=== PATIENT | female | born 1970 | race Two or more races ===

== ENCOUNTER 2019-11-15 12:06 | Emergency (ER) | payer MEDICAID ==
[2019-11-15 13:02] LABS: BASOPHILS # (AUTO) 0.1 10^3/uL (0.0-0.1); BASOPHILS % (AUTO) 0.8 %; EOSINOPHILS # (AUTO) 0.1 10^3/uL (0.0-0.7); EOSINOPHILS % (AUTO) 2.1 %; HGB - HEMOGLOBIN 14.3 g/dL (12.0-16.0); LYMPHOCYTES # (AUTO) 2.4 10^3/uL (1.5-3.5); LYMPHOCYTES % (AUTO) 39.5 %; MEAN CORPUSCULAR HGB CONC 33.4 g/dL (32.0-36.0); MEAN CORPUSCULAR VOLUME 95.7 fL (81.0-99.0); MEAN PLATELET VOLUME 11.7 fL (7.9-10.8); MONOCYTES # (AUTO) 0.3 10^3/uL (0.0-1.0); MONOCYTES % (AUTO) 5.5 %; NEUTROPHILS # (AUTO) 3.2 10^3/uL (1.5-6.6); NEUTROPHILS % (AUTO) 51.9 %; PLT - PLATELET COUNT 161 10^3/uL (130-450); RED BLOOD COUNT 4.47 10^6/uL (4.20-5.40); RED CELL DISTRIBUTION WIDTH 12.5 % (12.0-15.0); WHITE BLOOD COUNT 6.2 x10^3/uL (4.8-10.8)
--- NOTE | 2019-11-15 13:02 | XRAY Report ---
Reason: Chest pain Procedure Date: 11/15/2019 Accession Number: [id number] / [id number] Procedure: XR - Chest 1 View X-Ray CPT Code: 59494 Final Report FULL RESULT: EXAM: CHEST RADIOGRAPHY EXAM DATE: 11/15/2019 12:45 PM. CLINICAL HISTORY: Chest pain. COMPARISON: None. TECHNIQUE: 1 view. FINDINGS: Lungs/Pleura: No focal opacities evident. No pleural effusion. No pneumothorax. Mediastinum: Within exam limitations, the cardiomediastinal contour is normal. Other: None. IMPRESSION: No consolidation is identified. RADIA
[2019-11-15 13:10] LABS: ALBUMIN 4.5 g/dL (3.2-5.5); ALBUMIN/GLOBULIN RATIO 1.4 (1.0-2.2); BILIRUBIN,TOTAL 0.5 mg/dL (0.2-1.0); CALCIUM 9.7 mg/dL (8.5-10.3); CREATININE 0.5 mg/dL (0.4-1.0); TOTAL PROTEIN 7.7 g/dL (6.7-8.2)
[2019-11-15] MEDS ORDERED: FAMOTIDINE 20 MG TABLET PO STA (16:39)
[2019-11-15] MEDS ORDERED: SUCRALFATE 1 GM/10 ML UDC PO STA (16:39)
[2019-11-15] MEDS ORDERED: MAG HYDROX/AL HYDROX/SIMETH 30 ML UDC PO STA (16:39)
[2019-11-15] MEDS ORDERED: LIDOCAINE VISCOUS 2% 15 ML UDC MM STA (16:39)
--- NOTE | 2019-11-15 16:49 | ED Physician Documentation ---
History of Present Illness - Stated complaint Stated Complaint: CP/BACK PX, DIZZINESS - Chief complaint Chief Complaint: Cardiac - History obtained from History obtained from: Patient, Family - History of Present Illness Timing: How many days ago (3) Pain level max: 3 Pain level now: 0 - Additonal information Additional information: 49-year-old female presents to the emergency department stating she has occasional Sharp right-sided chest pain over the past 2 to 3 days. States that is worse at night and with laying down. Nothing seems to make it better. Does not change with food. Has never had similar symptoms in the past. No vomiting. Currently is feeling better. No fevers. No diarrhea. No difficulty breathing. No sweating. No lightheadedness. No history of acute coronary syndrome. Review of Systems Constitutional: denies: Fever, Chills GI: denies: Vomiting, Diarrhea Skin: denies: Rash Musculoskeletal: denies: Neck pain, Back pain Neurologic: denies: Headache PD PAST MEDICAL HISTORY - Past Medical History Past Medical History: Yes Cardiovascular: None Respiratory: None Endocrine/Autoimmune: Type 2 diabetes GI: None : None HEENT: None Psych: None Musculoskeletal: None Derm: None - Past Surgical History Past Surgical History: Yes General: Cholecystectomy - Present Medications Home Medications: Ambulatory Orders Medication Instructions Recorded Confirmed metFORMIN [Glucophage] 1,000 mg PO BID 02/17/16 06/01/16 Glipizide 5 mg PO DAILY 05/07/16 06/01/16 Clindamycin HCl [Clindamycin 300MG 300 mg PO Q6HR #27 capsule 06/02/16 CAP] Hydrocodone/Acetaminophen [Vicodin 1 - 2 each PO Q6HR PRN #14 tablet 06/02/16 5-300 mg Tablet] Famotidine [Pepcid] 20 mg PO BID #60 tablet 11/15/19 - Allergies Allergies/Adverse Reactions: Allergies Allergy/AdvReac Type Severity Reaction Status Date / Time No Known Drug Allergies Allergy Verified 11/15/19 12:09 - Social History Does the pt smoke?: No Smoking Status: Never smoker Does the pt drink ETOH?: No Does the pt have substance abuse?: No - Immunizations Immunizations are current?: Yes - POLST Patient has POLST: No PD ED PE NORMAL - Vitals Vital signs reviewed: Yes - General General: Alert and oriented X 3, No acute distress, Other (obese) - HEENT HEENT: Moist mucous membranes - Neck Neck: Supple, no meningeal sign - Cardiac Cardiac: RRR - Respiratory Respiratory: No respiratory distress, Clear bilaterally - Abdomen Abdomen: Soft, Non tender, Non distended, Other (No abdominal tenderness. Negative Reece sign) - Back Back: No CVA TTP, No spinal TTP - Derm Derm: Warm and dry - Extremities Extremities: No edema, No calf tenderness / cord - Neuro Neuro: Alert and oriented X 3 Results - Vitals Vitals: Vital Signs - 24 hr 11/15/19 11/15/19 11/15/19 12:09 15:01 17:20 Temperature 36.6 C 36.6 C Heart Rate 73 71 70 Respiratory 14 21 18 Rate Blood Pressure 130/79 109/68 110/66 O2 Saturation 99 98 100 Oxygen O2 Source Room air - Labs Labs: Laboratory Tests 11/15/19 11/15/19 11/15/19 12:51 12:51 12:51 WBC 6.2 RBC 4.47 Hgb 14.3 Hct 42.8 MCV 95.7 MCH 32.0 H MCHC 33.4 RDW 12.5 Plt Count 161 MPV 11.7 H Neut # (Auto) 3.2 Lymph # (Auto) 2.4 [place] # (Auto) 0.3 Eos # (Auto) 0.1 Baso # (Auto) 0.1 Absolute Nucleated RBC 0.00 Nucleated RBC % 0.0 Sodium 138 Potassium 3.8 Chloride 100 L Carbon Dioxide 30 Anion Gap 8.0 BUN 14 Creatinine 0.5 Estimated GFR (MDRD) 132 Glucose 156 H Calcium 9.7 Total Bilirubin 0.5 AST 17 ALT 23 Alkaline Phosphatase 51 Troponin I High Sens < 2.3 L Total Protein 7.7 Albumin 4.5 Globulin 3.2 Albumin/Globulin Ratio 1.4 Lipase 40 - Rads (name of study) cxr Radiology: Prelim report reviewed, EMP read contemporaneously, See rad report (normal) PD MEDICAL DECISION MAKING - ED course Complexity details: reviewed results, re-evaluated patient, considered differential, d/w patient ED course: Patient feels better with GI cocktail. Likely GERD as an etiology of her sym ptoms. No evidence of acute coronary syndrome. No evidence of pulmonary embolus. Possible gallbladder dysfunction as well. Patient is well-appearing, nontoxic. Afebrile. Tolerating p.o. without difficulty. Patient counseled regarding signs and symptoms for which I believe and urgent re-evaluation would be necessary. Patient with good understanding of and agreement to plan and is comfortable going home at this time This document was made in part using voice recognition software. While efforts are made to proofread this document, sound alike and grammatical errors may occur. Departure - Departure Disposition: Home, Self Care Clinical Impression: Chest pain Qualifiers: Chest pain type: unspecified Qualified Code(s): R07.9 - Chest pain, unspecified Condition: Good Instructions: ED Chest Pain Atypical Unkn Cause Follow-Up: your,doctor in 1 week [Other] Prescriptions: Famotidine [Pepcid] 20 mg PO BID #60 tablet Comments: Your test do not show any acute abnormalities today. You may be having symptoms related to your gallbladder or symptoms related to your stomach. We will try you on medication to see if this helps. You should also follow a low-fat diet. Return if you worsen Your doctor may want to perform a cardiac stress test on you as well. Discharge Date/Time: 11/15/19 17:20
[2019-11-15 17:22] VITALS: BP 110/66
== END 2019-11-15 17:20 | disposition home or self-care (01) ==
LOC: ED 12:06
DX: R07.9 Chest pain, unspecified (principal); E11.9 Type 2 diabetes mellitus without complications; Z79.84 Long term (current) use of oral hypoglycemic drugs
CPT/HCPCS: 36415; 71045; 80053; 83690; 84484; 85025; 93005; 99284; A9270